=== PATIENT | female | born 1955 | race Caucasian/White ===

== ENCOUNTER → 2018-07-26 | Outpatient (CLI) | payer BC ==
--- NOTE | 2018-07-26 10:03 | PCVCIMAG ---
APPROVED REPORT Study performed: 07/26/2018 08:11:44 EXAM: Comprehensive 2D, Doppler, and color-flow Echocardiogram Patient Location: Echo lab Status: routine BSA: 2.21 HR: 74 bpmBP: 140/84 mmHg Rhythm: NSR Other Information Study Quality: Good Risk Factors: Cardiac Risk Factors: HTN, Hyperlipidemia, FHX of CAD Indications Pre op knee surgery 2D Dimensions IVSd: 15.24 (7-11mm)LVOT Diam: 20.01 (18-24mm) LVDd: 40.52 mm PWd: 18.30 (7-11mm)Ascending Ao: 31.93 (22-36mm) LVDs: 32.92 (25-40mm) Left Atrium: 39.24 (27-40mm) Aortic Root: 28.88 mm LV Single Plane 4CH: 47.46 % LV Single Plane 2CH: 58.88 % Biplane EF: 53.3 % Volumes Left Atrial Volume (Systole) Single Plane 4CH: 61.05 mLSingle Plane 2CH: 58.35 mL LA ESV Index: 29.00 mL/m2 Aortic Valve AoV Peak Roly.: 1.27 m/s AO Peak Gr.: 6.47 mmHgLVOT Max P.93 mmHg LVOT Max V: 0.99 m/s RAJ Vmax: 2.45 cm2 AI Vmax: 4.62 m/s AI [place]: 2.66 m/s2 AI PHT: 528.94 ms Mitral Valve E/A Ratio: 1.0 MV Decel. Time: 133.72 ms MV E Max Roly.: 0.49 m/s MV A Roly.: 0.47 m/s IVRT: 162.63 ms TDI E/Lateral E': 6.13E/Medial E': 8.17 Medial E' Roly.: 0.06 m/s Lateral E' Roly.: 0.08 m/s Pulmonary Valve PV Peak Gr.: 2.12 mmHg Pulmonary Vein P Vein S: 0.43 m/sP Vein A: 0.36 m/s P Vein D: 0.31 m/sP Vein A Dur.: 72.7 msec P Vein S/D Ratio: 1.39 Tricuspid Valve TR Peak Roly.: 2.62 m/s TR Peak Gr.: 27.37 mmHg Left Ventricle The left ventricle is normal size. There is normal LV segmental wall motion. Mild concentric left ventricular hypertrophy. Left ventricular systolic function is normal. The left ventricular ejection fraction is within the normal range. LVEF is 60%. The left ventricular diastolic function is normal. Right Ventricle The right ventricle is normal size. The right ventricular systolic function is normal. Atria The left atrium size is normal. The right atrium size is normal. Aortic Valve The aortic valve is normal in structure. Mild aortic regurgitation. There is no aortic valvular stenosis. Mitral Valve The mitral valve is normal in structure. Mild mitral regurgitation. No evidence of mitral valve stenosis. Tricuspid Valve The tricuspid valve is normal in structure. Trace tricuspid regurgitation. Pulmonary artery pressure is 34mmHg. Pulmonic Valve The pulmonary valve is normal in structure. There is no pulmonic valvular regurgitation. Great Vessels The aortic root is normal in size. IVC is normal in size and collapses >50% with inspiration. Pericardium There is no pericardial effusion. <Conclusion> The left ventricle is normal size. LVEF is 60%. The left ventricular diastolic function is normal. The right ventricle is normal size. The left atrium size is normal. Mild aortic regurgitation. Mild mitral regurgitation. Trace tricuspid regurgitation. Pulmonary artery pressure is 34mmHg. There is no pulmonic valvular regurgitation. The aortic root is normal in size. There is no pericardial effusion.
== END | disposition home or self-care (01) ==
LOC: PCVCIMAG 07:49
PROVIDERS: ATTEND Internal Medicine Cardiovascular Disease
DX: Z01.818 Encounter for other preprocedural examination (principal); I08.0 Rheumatic disorders of both mitral and aortic valves; R94.31 Abnormal electrocardiogram [ECG] [EKG]; I10 Essential (primary) hypertension; E78.5 Hyperlipidemia, unspecified; Z82.49 Family history of ischemic heart disease and other diseases of the circulatory system
CPT/HCPCS: 93306